=== PATIENT | male | born 1945 | race Two or more races ===

== ENCOUNTER 2017-03-06 09:10 | Emergency (ER) | payer OTHER, MEDICARE ==
--- NOTE | 2017-03-06 09:21 | PDOC ---
ED Treatment Course - LABORATORY CBC & Chemistry Diagram: 03/06/17 09:20 03/06/17 09:20 Medical Decision Making - Medical Decision Making 03/06/17 21:04 Pt seen by the Advanced Practice Provider under my direct supervision Ancillary studies reviewed I agree with plan as outlined by the Advanced Practice Provider with the following exceptions. I spoke with the patient personally about our findings in the ED including 2 negative troponins. I also discussed the results of his cardiac testing with Dr. Espinal so far and the need for a possible cath to work up his pain. He expressed understanding of this need for further testing and will follow up with Dr. Espinal next week. He reported no current CP. He expressed understanding to return to the ED immediately if he has any new, concerning, or worsening symptoms. *DC/Admit/Observation/Transfer Diagnosis at time of Disposition: Chest pain Qualifiers: Chest pain type: unspecified Qualified Code(s): R07.9 - Chest pain, unspecified - Discharge Dispostion Disposition: HOME Condition at time of disposition: Improved - Referrals Referrals: Davy Morrissey [Primary Care Provider] - - Patient Instructions Printed Discharge Instructions: DI for Atypical Chest Pain Additional Instructions: Please follow-up with Dr. Dorantes next week
[2017-03-06] MEDS ORDERED: ASPIRIN 325 MG TABLET PO ONE (09:26)
--- NOTE | 2017-03-06 09:32 | PDOC ---
History of Present Illness - General Chief Complaint: Chest Pain Stated Complaint: CHEST PAIN Time Seen by Provider: 03/06/17 09:13 History Source: Patient - History of Present Illness Presenting Symptoms: Chest Pain Timing/Duration: reports: constant, changing over time Severity/Quality: reports: moderate Location: reports: substernal Chest Pain Radiation: denies: no radiation Past History - Past Medical History Allergies/Adverse Reactions: Allergies Allergy/AdvReac Type Severity Reaction Status Date / Time gluten AdvReac Verified 03/06/17 09:12 Home Medications: Ambulatory Orders Amitriptyline HCl [Elavil -] 10 mg PO DAILY 03/06/17 Clonidine HCl [Kapvay] 0.15 mg PO BID 03/06/17 Finasteride [Proscar -] 5 mg PO DAILY 03/06/17 Gabapentin 800 mg PO TID 03/06/17 Lorazepam 2 mg PO TID 03/06/17 Methadone [Dolophine -] 20 mg PO TID 03/06/17 Mirtazapine [Remeron -] 45 mg PO DAILY 03/06/17 Oxycodone HCl/Acetaminophen [Percocet 10-325 mg Tablet] 1 each PO BID 03/06/17 Propranolol HCl [Inderal -] 10 mg PO BID 03/06/17 Rosuvastatin Calcium [Crestor] 5 mg PO DAILY 03/06/17 Tamsulosin HCl 0.4 mg PO DAILY 03/06/17 HTN: Yes Psychiatric Problems: Yes (ANXIETY/DEPRESSION) Other medical history: on methadone, peripheral neuropathy - Surgical History Abdominal Surgery: Yes (HERNIA) - Immunization History Immunization Up to Date: Yes - Psycho/Social/Smoking Cessation Hx Suicidal Ideation: No Smoking History: Never smoked Hx Alcohol Use: No Drug/Substance Use Hx: No Substance Use Type: Opiates Review of Systems - Review of Systems Constitutional: No: Chills, Fever Respiratory: No: Cough, Shortness of Breath Cardiac (ROS): Yes: Chest Pain. No: Lightheadedness, Palpitations, Syncope *Physical Exam - Vital Signs Last Vital Signs Temp Pulse Resp BP Pulse Ox 97.8 F 95 H 18 124/78 99 03/06/17 13:30 03/06/17 13:30 03/06/17 13:30 03/06/17 13:30 03/06/17 13:30 - Physical Exam General Appearance: Yes: Appropriately Dressed. No: Apparent Distress HEENT: positive: Normal Voice Neck: positive: Supple Respiratory/Chest: positive: Lungs Clear, Normal Breath Sounds. negative: Respiratory Distress Cardiovascular: positive: Regular Rate, S1, S2 Gastrointestinal/Abdominal: positive: Soft. negative: Tender Extremity: positive: Normal Inspection Integumentary: positive: Dry, Warm Neurologic: positive: Fully Oriented, Alert, Normal Mood/Affect Heart Score/ECG Review - ECG Intrepretation Comment:: 03/06/17 09:33 Twelve-lead EKG was performed and reviewed by me. There is normal sinus rhythm with a normal rate. The axis is normal. The intervals are normal. There are no ST or T wave abnormalities. Impression: Normal twelve-lead EKG ED Treatment Course - LABORATORY CBC & Chemistry Diagram: 03/06/17 09:20 03/06/17 09:20 - ADDITIONAL ORDERS Additional order review: Laboratory Results 03/06/17 03/06/17 03/06/17 14:32 09:20 09:20 Sodium 138 Potassium 4.4 Chloride 104 Carbon Dioxide 28 Anion Gap 6 L BUN 19 H Creatinine 0.8 Creat Clearance w eGFR > 60 Random Glucose 113 H Calcium 9.0 Total Bilirubin 0.3 D AST 15 ALT 29 Alkaline Phosphatase 80 Creatine Kinase 91 91 Troponin I < 0.02 < 0.02 B-Natriuretic Peptide 25.74 Total Protein 6.6 Albumin 3.7 Urine Color Straw Urine Appearance Clear Urine pH 5.0 Urine Protein Negative Urine Glucose (UA) Negative Urine Ketones Negative Urine Blood Negative Urine Nitrite Negative Urine Bilirubin Negative Urine Urobilinogen Negative Urine RBC None Urine WBC 4 03/06/17 09:20 RBC 4.41 MCV 85.3 MCHC 33.8 RDW 14.0 MPV 7.9 D Neutrophils % 63.7 D Lymphocytes % 24.9 D Monocytes % 8.2 Eosinophils % 2.7 D Basophils % 0.5 - RADIOLOGY Radiology Studies Ordered: Category Date Time Status CHEST X-RAY PORTABLE* [RAD] Stat Radiology 03/06/17 09:25 Completed - Medications Given in the ED: ED Medications Discontinued Medications Generic Name Dose Route Start Last Admin Trade Name Freq PRN Reason Stop Dose Admin Aspirin 325 mg 03/06/17 09:26 03/06/17 10:08 Asa - PO 03/06/17 09:27 Not Given ONCE ONE Gabapentin 800 mg 03/06/17 12:42 03/06/17 12:47 Neurontin - PO 03/06/17 12:43 800 mg ONCE ONE Administration Lorazepam 1 mg 03/06/17 15:12 03/06/17 16:11 Ativan - PO 03/06/17 15:13 1 mg ONCE ONE Administration Methadone HCl 20 mg 03/06/17 11:58 03/06/17 14:58 Dolophine - PO 03/06/17 11:59 20 mg ONCE ONE Administration Morphine Sulfate 2 mg 03/06/17 09:43 03/06/17 10:10 Morphine Injection - IVPUSH 03/06/17 09:44 2 mg ONCE ONE Administration Oxycodone/Acetaminophen 2 combo 03/06/17 11:58 03/06/17 12:16 Percocet 5/325 - PO 03/06/17 11:59 2 combo ONCE ONE Administration Medical Decision Making - Medical Decision Making 03/06/17 09:28 71-year-old male listening on methadone idiopathic intractable bilateral peripheral neuropathy on multiple medications, hypertension, takes daily baby aspirin, s/p neg nuclear stress test earlier this year, presents with chest pain. Patient reports that about 7:30 this am, he developed SS, non-radiating chest pain that feels like "an elephant sitting on my chest" with an intensity of 6-7 out of 10, constant and improved with 3 baby aspirin enroute. Denies shortness of breath, diaphoresis, nausea or vomiting. Has had similar pain in the past, though not this severe. No obvious risk factors for DVT/PE. As per EMT, systolic blood pressure 180s en route that improved to 140 after aspirin. EKG at scene was unremarkable on my review See exam CP s/p neg stress this year No known CAD Hypertensive at scene but stable and well maribel in ED w/ unremarkable exam R/o ACS, less likely dissection, PE or PNA -received asa (324mg) at scene -ekg -cxr -labs -disuss dispo w/ Dr Espinal (pt's cards0 03/06/17 09:32 03/06/17 09:34 03/06/17 11:17 EKG and labs are unremarkable. Patient significantly improved in ED. Case discussed with Dr. Bro, covering for Dr. Dorantes, who agrees with ruling out w/ 2 sets. As per [facility]., will review recent nuclear stress and come see patient at bedside 03/06/17 15:21 Troponin negative. Patient has remained stable and well appearing, in ED with no further reports of chest pain. During ER stay, patient has repeatedly come up to ED staff, requesting all his pain medications he is on at home. Also requested methadone and anxiolytic. Currently waiting for Dr. Bro of cards to assess 03/06/17 16:30 03/06/17 16:31 As per cardiology, suspects that chest pain might be related to anxiety. MD documents that the patient's nuclear stress test August of this year was equivocal due to low heart rate and possible inferior infarct, but think this was likely due from artifact. Documents that if enzymes negative and patient remains clinically stable, can possibly be discharged with reassurance vs cardiac catheter. States would not recommend nuclear stress test at this time. Case discussed with patient who feels safe going home. Reports no chest pain at this time and has remained well maribel and stable. Pt now mostly preoccupied with his peripheral neuropathy. Told to f/u with his PMD and with cards. Reasons to return d/w pt *DC/Admit/Observation/Transfer Diagnosis at time of Disposition: Chest pain Qualifiers: Chest pain type: unspecified Qualified Code(s): R07.9 - Chest pain, unspecified - Discharge Dispostion Disposition: HOME Condition at time of disposition: Improved - Referrals Referrals: Davy Morrissey [Primary Care Provider] - - Patient Instructions Printed Discharge Instructions: DI for Atypical Chest Pain Additional Instructions: Please follow-up with Dr. Dorantes next week
[2017-03-06 09:38] LABS: URINE APPEARANCE CLEAR; URINE BILIRUBIN NEGATIVE (NEGATIVE); URINE BLOOD NEGATIVE (NEGATIVE); URINE COLOR STRAW; URINE GLUCOSE (UA) NEGATIVE (NEGATIVE); URINE KETONE NEGATIVE (NEGATIVE); URINE LEUK ESTERASE TRACE (NEGATIVE); URINE NITRITE NEGATIVE (NEGATIVE); URINE PROTEIN NEGATIVE (NEGATIVE); URINE UROBILINOGEN NEGATIVE mg/dL (0.2-1.0)
[2017-03-06 09:41] LABS: URINE WBC 4 /hpf (3-5)
[2017-03-06] MEDS ORDERED: morphine CARPU-JECT 4 MG/1 ML DISP.SYRIN IVPUSH ONE (09:43)
[2017-03-06 09:46] LABS: BASOPHIL 0.5 % (0-2.0); EOSINOPHIL 2.7 % (0-4.5); MCH 28.8 pg (25.7-33.7); MCHC 33.8 g/dl (32.0-35.9); MEAN CELL VOLUME 85.3 fl (80-96); MEAN PLT VOLUME 7.9 fl (7.5-11.1); NEUTROPHILS 63.7 % (42.8-82.8); PLATELET COUNT 151 K/MM3 (134-434); WHITE BLOOD COUNT 8.4 K/mm3 (4.0-10.0)
[2017-03-06 09:49] VITALS: BMI 26.6
[2017-03-06 10:06] LABS: ALBUMIN 3.7 g/dl (3.4-5.0); ANION GAP 6 (8-16); BILIRUBIN,TOTAL 0.3 mg/dL (0.2-1.0); CO2 28 mmol/L (21-32); CREATININE 0.8 mg/dL (0.7-1.3); GLUCOSE,RANDOM 113 mg/dL (74-106); SGOT/AST 15 U/L (15-37); SGPT/ALT 29 U/L (12-78); TOT PROT 6.6 g/dl (6.4-8.2)
[2017-03-06 10:09] LABS: ALK PHOS 80 U/L (45-117); CPK 91 IU/L (39-308); TROPONIN I < 0.02 ng/ml (0.00-0.05)
[2017-03-06] MEDS ORDERED: morphine CARPU-JECT 2 MG/1 ML DISP.SYRIN ONE (10:09)
--- NOTE | 2017-03-06 11:10 | EKG ---
Test Reason : Blood Pressure : / mmHG Vent. Rate : 083 BPM Atrial Rate : 083 BPM P-R Int : 138 ms QRS Dur : 076 ms QT Int : 330 ms P-R-T Axes : 068 036 056 degrees QTc Int : 387 ms NORMAL SINUS RHYTHM NORMAL ECG WHEN COMPARED WITH ECG OF 23-MAY-2016 13:39, NO SIGNIFICANT CHANGE WAS FOUND Confirmed by OTONIEL TOWNSEND MD ([id number]) on 03/06/2017 11:09:52 AM Referred By: Confirmed By:OTONIEL TOWNSEND MD
[2017-03-06] MEDS ORDERED: METHADONE HCL 10 MG TABLET ONE ×2 (12:00→15:16)
[2017-03-06] MEDS ORDERED: GABAPENTIN 400 MG CAPSULE (FP) PO ONE (12:42)
[2017-03-06] MEDS ORDERED: GABAPENTIN 100 MG CAPSULE (FP) ONE (12:49)
[2017-03-06] MEDS: METHADONE HCL 10 MG TABLET PO ONE ×2 (13:02→14:58)
[2017-03-06 13:55] VITALS: BP 124/78; PULSE 95; TEMP 97.8
[2017-03-06] MEDS ORDERED: ONDANSETRON *ODT* 4 MG TABLET ONE (14:43)
--- NOTE | 2017-03-06 14:52 | CON.CARD ---
Consult Consult Specialty:: cardio Referred by:: ER Reason for Consultation:: cp - History of Present Illness Chief Complaint: cp History of Present Illness: 71 yo male presented to ER with chest pain. pt has known poorly controlled anxiety disorder with panic features, with prior known BP fluctuations and sinus tach related to this. had severe chronic pain syndromes and LE neuropathy. saw me earlier this year and requested stress testing due to anxiety about his heart having been damaged by repeated prior HR and BP fluctuations. stress echo done at that time showed vigorous LV fxn with no ischemia. current active sx's/HPI not able to be obtained as pt was discharged prior to my examining him PMH: HTN HPL no DM never cigs no FH of CAD - Alcohol/Substance Use Hx Alcohol Use: No - Smoking History Smoking history: Never smoked Home Medications - Allergies Allergies/Adverse Reactions: Allergies Allergy/AdvReac Type Severity Reaction Status Date / Time gluten AdvReac Verified 03/06/17 09:12 - Home Medications Home Medications: Ambulatory Orders Amitriptyline HCl [Elavil -] 10 mg PO DAILY 03/06/17 Clonidine HCl [Kapvay] 0.15 mg PO BID 03/06/17 Finasteride [Proscar -] 5 mg PO DAILY 03/06/17 Gabapentin 800 mg PO TID 03/06/17 Lorazepam 2 mg PO TID 03/06/17 Methadone [Dolophine -] 20 mg PO TID 03/06/17 Mirtazapine [Remeron -] 45 mg PO DAILY 03/06/17 Oxycodone HCl/Acetaminophen [Percocet 10-325 mg Tablet] 1 each PO BID 03/06/17 Propranolol HCl [Inderal -] 10 mg PO BID 03/06/17 Rosuvastatin Calcium [Crestor] 5 mg PO DAILY 03/06/17 Tamsulosin HCl 0.4 mg PO DAILY 03/06/17 Vital Signs: Vital Signs Temperature 97.8 F 03/06/17 13:30 Pulse Rate 95 H 03/06/17 13:30 Respiratory Rate 18 03/06/17 13:30 Blood Pressure 124/78 03/06/17 13:30 O2 Sat by Pulse Oximetry (%) 99 03/06/17 13:30 - Other Data Labs, Other Data: CBC, BMP 03/06/17 09:20 03/06/17 09:20 Troponin, BNP 03/06/17 09:20 Troponin I < 0.02 B-Natriuretic Peptide 25.74 Troponin, BNP 03/06/17 09:20 Troponin I < 0.02 B-Natriuretic Peptide 25.74 Laboratory Tests 03/06/17 03/06/17 09:20 09:20 WBC 8.4 Hgb 12.7 D Plt Count 151 Sodium 138 Potassium 4.4 Carbon Dioxide 28 BUN 19 H Creatinine 0.8 AST 15 ALT 29 Creatine Kinase 91 Troponin I < 0.02 B-Natriuretic Peptide 25.74 Assessment/Plan [facility] Stress Echo 11/07: >85% MPHR. no ST changes. No ischemia MPI 09/07 (different cardio office): 3:01 minutes, 76% max predicted HR, NO SX'S DURING PROTOCOL. "severe basal maybe mid-inferior defect" at rest and stress with "maybe mild inferior hypokinesis" and nl EF (69%). conclusion: basal and mid inferior infarct. Echo 10/08: nl overall LVSF; nl RV; mild AI/MR CXR: clear lungs/pleura (my review: normal mediastinum and cardiac silhouette) EKG: NSR, normal axis/intervals; no path q's, no ST-T abn atypical CP: -known chronic syndrome in pt who is not high risk by [facility], and which is clinically very suspicious for being related to anxiety. -he had nuclear stress test in past for this (09/07)--equivocal study due to low HR achieved, reported as possible prior inferior infarct but this was likely diaphragm attenuation artifact (given no inferior WMA at rest on echo, and no inducible ischemia on stress echo 11/07). -current sx's of intense heaviness in chest at rest--no ekg abnormalities and 1st enzymes negative. -rec repeat cardiac enzymes at 6 hrs. -if enzymes negative and pt remains clinically stable, options include: (1) reassurance (though this is unlikely to be effective given ongoing sx's and uncontrolled anxiety, with mult ER visits this year); (2) cardiac cath in hopes of definitively putting this to rest clinically and in pt's mind. -would not repeat nuclear stress test given radiation exposure from 2 serial studies done 6 mo apart, with potential for residual diagnostic uncertainty after that test. HTN: -likely labile with anxiety attacks -well controlled in ER HPL: -on statin at home, follows with pmd ADDENDUM: the preliminary draft note was created from the office, based on review of hospital [facility] records/notes, and my office EHR and left unsigned. when i was ready to leave the office to go to ER at 5:50 pm, i looked the pt up in [facility] and saw that RAJESH Hinton had reviewed my draft note including the statements above, and discharged the pt based on 2nd negative cardiac enzyme, with instruction to f/u with me in office. i called and spoke with dr hinton and informed her i had not yet seen the pt, but she stated she was not aware of that when reading my draft (unsigned) note and he had remained stable in ER so was sent home after 2nd troponin negative. pt will be called at home and advised to come in to see me to discuss cath to definitively rule out CAD as cause of his atypical sx's with low-risk clinical markers
[2017-03-06 15:12] LABS: CPK 91 IU/L (39-308)
[2017-03-06] MEDS ORDERED: LORazepam 1 MG TABLET PO ONE (15:12)
[2017-03-06 15:13] LABS: TROPONIN I < 0.02 ng/ml (0.00-0.05)
[2017-03-06] MEDS ORDERED: LORazepam 0.5 MG TABLET ONE (16:18)
== END 2017-03-06 16:55 | disposition home or self-care (01) ==
LOC: JER 09:10
DX: R07.9 Chest pain, unspecified (principal); F41.8 Other specified anxiety disorders; I10 Essential (primary) hypertension; G60.9 Hereditary and idiopathic neuropathy, unspecified
CPT/HCPCS: 36415; 71010-TC; 80053; 81003; 81015; 83880; 84484; 85025; 93005; 93010; 99285-25